=== PATIENT | female | born 1940 | race Caucasian/White ===

== ENCOUNTER 2017-12-13 01:43 | Inpatient (IN) | payer MEDICARE ==
[2017-12-13] VITALS (18 sets, daily range): BP systolic 89–147; BP diastolic 43–85
[~2017-12-13] VITALS: Ht 167.6 cm; Wt 71.8 kg
[~2017-12-13 01:43] MED LIST: THY60T PO
[2017-12-13 02:35] LABS: INR 0.9 INR; PROTHROMBIN TIME 9.7 SECONDS (9.0-12.0)
[2017-12-13] MEDS ORDERED: morphine 4 MG/ML inj SYRINge IV ONE (02:35)
[2017-12-13] MEDS ORDERED: normal saline 1000ML IV soln IVB ONE (02:35)
[2017-12-13] MEDS ORDERED: ondansetron/PF 4mg/2ml inj IV ONE (02:35)
[2017-12-13 02:38] LABS: CLARITY,URINE CLOUDY (Clear); GLUCOSE, URINE NEGATIVE (Neg); KETONES,URINE 15 mg/dl (Neg); LEUKOCYTE ESTERASE ,URINE MODERATE (Neg); NITRITES, URINE NEGATIVE (Neg); OCCULT BLOOD,URINE LARGE (Neg); PROTEIN,URINE 30 mg/dl (Neg)
[2017-12-13 02:41] LABS: ALANINE AMINOTRANSFERASE 308 U/L (12-78); ALBUMIN 3.9 G/DL (3.4-5.0); ALBUMIN/GLOBULIN RATIO 0.8 (1.1-1.5); ALKALINE PHOSPHATASE 395 IU/L (46-116); ANION GAP 11 (8-16); ASPARTATE AMINO TRANSFERASE 303 U/L (10-37); BILIRUBIN,TOTAL 1.7 MG/DL (0.1-1.0); BLOOD UREA NITROGEN 23 MG/DL (7-18); BUN/CREATININE RATIO 17.2 (6.6-38.0); CHLORIDE 99 MMOL/L (99-107); CREATININE 1.34 MG/DL (0.40-0.90); GLUCOSE 184 MG/DL (70-104); LIPASE 106 U/L (73-393); POTASSIUM 4.1 MMOL/L (3.5-5.1); SODIUM 139 MMOL/L (135-145); TOTAL PROTEIN 8.6 G/DL (6.4-8.2); eGFR 38 ML/MIN
[2017-12-13 02:44] LABS: UA COLLECTION TYPE NON-SPECIFIED
[2017-12-13 02:45] LABS: COLOR,URINE DARK YELLOW (Yellow)
[2017-12-13 03:05] LABS: BASOPHILS % (AUTO) 0.1 % (0-1); EOSINOPHILS # (AUTO) 0.1 X10'3 (0-0.9); EOSINOPHILS % (AUTO) 0.7 % (0-6); HEMATOCRIT 41.7 % (35.0-45.0); HEMOGLOBIN 13.5 g/dl (12.0-16.0); LYMPHOCYTES # (AUTO) 1.1 X10'3 (1.1-4.8); LYMPHOCYTES % (AUTO) 9.8 % (21-51); MEAN CORPUSCULAR HEMOGLOBIN 28.4 PG (27.0-31.0); MEAN CORPUSCULAR HGB CONC 32.3 % (33.0-36.5); MEAN PLATELET VOLUME 9.4 FL (7.4-10.4); MONOCYTES # (AUTO) 0.6 X10'3 (0-0.9); MONOCYTES % (AUTO) 5.4 % (2-12); NEUTROPHILS # (AUTO) 9.1 X10'3 (1.8-7.7); PLATELET COUNT 304 X10'3 (140-440); RED BLOOD COUNT 4.74 X10'6 (4.20-5.60); RED CELL DISTRIBUTION WIDTH 13.3 % (11.5-14.5); WHITE BLOOD COUNT 10.9 X10'3 (4.5-11.0)
[2017-12-13 03:15] LABS: WBC,URINE TNTC /HPF (0-4)
[2017-12-13 03:16] LABS: BACTERIA,URINE 1+ /HPF (Neg); MUCUS STRANDS FEW /LPF (Neg); RENAL CELLS, URINE FEW /HPF; SQUAMOUS EPITHELIAL CELL,UR FEW /LPF (FEW); TRANSITIONAL EPI CELLS,URINE FEW /HPF; WBC CLUMPS,URINE MODERATE /HPF (NEGATIVE)
[2017-12-13 03:17] LABS: HYALINE CASTS 0-3 /LPF (NEGATIVE)
[2017-12-13] MEDS ORDERED: piperacillin/tazo 3.375gm/50ml 50 ML IV STA (04:49)
[2017-12-13] MEDS ORDERED: magnesium hydroxide 30ml (MOM) UD suspension PO PRN (05:00)
[2017-12-13] MEDS ORDERED: diphenhydrAMINE 25mg capsule PO PRN (05:00)
[2017-12-13] MEDS ORDERED: diphenhydrAMINE 50 mg/ml inj IV PRN (05:00)
[2017-12-13] MEDS ORDERED: metoclopramide 5 mg/ml inj IV PRN (05:00)
[2017-12-13] MEDS ORDERED: HYDROmorphone inj. 0.5 MG/0.5 ML DISP.SYRIN IV PRN ×2 (05:00)
[2017-12-13] MEDS ORDERED: HYDROcodone/acetaminophen 5mg/325mg tablet PO PRN (05:00)
[2017-12-13] MEDS ORDERED: acetaminophen 650mg rectal suppository RC PRN (05:00)
[2017-12-13] MEDS ORDERED: acetaminophen 325mg tablet PO PRN (05:00)
[2017-12-13] MEDS ORDERED: HYDROcodone/acetaminophen 10/325mg tab PO PRN (05:00)
[2017-12-13] MEDS ORDERED: bisacodyl 10mg suppository rectal RC PRN (05:00)
[2017-12-13] MEDS ORDERED: morphine 4 MG/ML inj SYRINge IV PRN ×2 (05:00)
[2017-12-13] MEDS ORDERED: mag hydrox/Alum hydrox/simeth 30ml oral suspension PO PRN (05:00)
[2017-12-13] MEDS ORDERED: piperacillin/tazo 4.5gm/100ml 100 ML IV SCH (06:13)
[2017-12-13 06:30] LABS: PARTIAL THROMBOPLASTIN TIME 25 SECONDS (22-32)
[2017-12-13] MEDS: pantoprazole 40 MG vial IV SCH (06:35)
[2017-12-13] MEDS: normal saline 1000ml 1,000 ML IV SCH ×2 (06:35→17:09)
[2017-12-13] MEDS: docusate sod 100mg capsule PO SCH ×2 (06:41→20:00)
[2017-12-13 06:48] LABS: MAGNESIUM 2.1 MG/DL (1.5-2.4)
[2017-12-13] MEDS: thyroid, pork 30mg tablet PO SCH (08:00)
[2017-12-13] MEDS: CefTRIAXone/D5W-Rocephin 1gm 50 ML IV SCH (08:32)
[2017-12-13] MEDS: metroNIDAZOLE-Flagyl 500mg/NS 100 ML IV SCH ×2 (09:41→17:09)
[2017-12-13] MEDS ORDERED: normal saline 1000ml 1,000 ML IV SCH (12:04)
[2017-12-13] MEDS ORDERED: glucagon, human recombinant 1mg kit IV PRN (12:05)
[2017-12-13] MEDS ORDERED: MIDAZolam 5mg/5ml vial IV PRN (12:05)
[2017-12-13] MEDS ORDERED: fentaNYL/PF 50MCG/1 ML 2ML syringe IV PRN (12:05)
[2017-12-13] MEDS ORDERED: iohexol 300 MG/1 ML 50ml polymer IV ONE (12:05)
[2017-12-13] MEDS ORDERED: simethicone 40mg/0.6ml oral drops 30ml MC ONE (12:05)
[2017-12-13] MEDS ORDERED: LIDOcaine Viscous 15ml cup PO ONE (12:05)
[2017-12-13] MEDS ORDERED: meperidine/PF 100mg/ml syringe ONE (12:21)
[2017-12-13] MEDS ORDERED: fentaNYL/PF 50MCG/1 ML 2ML syringe ONE (12:22)
[2017-12-13] MEDS ORDERED: MIDAZolam 5mg/5ml vial ONE (12:22)
[2017-12-13] MEDS ORDERED: diphenhydrAMINE 50 mg/ml inj ONE (12:22)
[2017-12-13] MEDS ORDERED: levoFLOXACIN-Levaquin 500mg/D5 100 ML IV ONE (12:23)
[2017-12-13] MEDS ORDERED: LIDOcaine Viscous 15ml cup ONE (12:23)
[2017-12-13] MEDS ORDERED: glucagon, human recombinant 1mg kit ONE (12:23)
[2017-12-13] MEDS ORDERED: iohexol 300 MG/1 ML 50ml polymer ONE (12:23)
[2017-12-13] MEDS ORDERED: normal saline 500ml IV soln 500 ML IV ONE (19:55)
[2017-12-13] MEDS: lactobacillus rhamnosus 10,000 MMU CELLS/CAPSULE PO SCH (20:09)
[2017-12-13] MEDS: ondansetron/PF 4mg/2ml inj IV PRN (20:23)
[2017-12-13 20:25] LABS: BASOPHILS % (AUTO) 0.2 % (0-1); EOSINOPHILS # (AUTO) 0.1 X10'3 (0-0.9); EOSINOPHILS % (AUTO) 1.5 % (0-6); HEMATOCRIT 34.1 % (35.0-45.0); HEMOGLOBIN 11.4 g/dl (12.0-16.0); LYMPHOCYTES # (AUTO) 0.9 X10'3 (1.1-4.8); LYMPHOCYTES % (AUTO) 9.8 % (21-51); MEAN CORPUSCULAR HEMOGLOBIN 29.6 PG (27.0-31.0); MEAN CORPUSCULAR HGB CONC 33.4 % (33.0-36.5); MEAN CORPUSCULAR VOLUME 88.4 FL (78-98); MEAN PLATELET VOLUME 8.5 FL (7.4-10.4); MONOCYTES # (AUTO) 0.7 X10'3 (0-0.9); NEUTROPHILS # (AUTO) 7.9 X10'3 (1.8-7.7); NEUTROPHILS % (AUTO) 81.5 % (42-75); PLATELET COUNT 210 X10'3 (140-440); RED BLOOD COUNT 3.85 X10'6 (4.20-5.60); RED CELL DISTRIBUTION WIDTH 13.9 % (11.5-14.5); WHITE BLOOD COUNT 9.6 X10'3 (4.5-11.0)
[2017-12-13 20:48] LABS: C-REACTIVE PROTEIN 6.25 MG/DL (0.0-0.5); CREATINE KINASE 56 U/L (26-192); LIPASE 66 U/L (73-393); MAGNESIUM 2.2 MG/DL (1.5-2.4); TROPONIN I < 0.04 NG/ML (0.0-0.05)
[2017-12-13] MEDS ORDERED: temazepam 15mg capsule PO PRN (21:00)
[2017-12-14] VITALS: BP 100/54
[2017-12-14] MEDS: metroNIDAZOLE-Flagyl 500mg/NS 100 ML IV SCH ×3 (00:06→16:05)
[2017-12-14] MEDS: normal saline 1000ml 1,000 ML IV SCH ×3 (00:58→17:43)
[2017-12-14 04:00] VITALS: BP 95/52
[2017-12-14] MEDS: pantoprazole 40 MG vial IV SCH (05:01)
[2017-12-14 05:53] LABS: BASOPHILS % (AUTO) 0.3 % (0-1); EOSINOPHILS # (AUTO) 0.1 X10'3 (0-0.9); EOSINOPHILS % (AUTO) 1.9 % (0-6); HEMATOCRIT 31.6 % (35.0-45.0); HEMOGLOBIN 10.7 g/dl (12.0-16.0); LYMPHOCYTES # (AUTO) 1.3 X10'3 (1.1-4.8); LYMPHOCYTES % (AUTO) 19.2 % (21-51); MEAN CORPUSCULAR HEMOGLOBIN 29.9 PG (27.0-31.0); MEAN CORPUSCULAR HGB CONC 33.9 % (33.0-36.5); MEAN CORPUSCULAR VOLUME 88.4 FL (78-98); MEAN PLATELET VOLUME 9.4 FL (7.4-10.4); MONOCYTES # (AUTO) 0.5 X10'3 (0-0.9); MONOCYTES % (AUTO) 7.3 % (2-12); NEUTROPHILS # (AUTO) 4.6 X10'3 (1.8-7.7); NEUTROPHILS % (AUTO) 71.3 % (42-75); PLATELET COUNT 194 X10'3 (140-440); RED BLOOD COUNT 3.58 X10'6 (4.20-5.60); RED CELL DISTRIBUTION WIDTH 13.9 % (11.5-14.5); WHITE BLOOD COUNT 6.5 X10'3 (4.5-11.0)
[2017-12-14 06:10] LABS: ALANINE AMINOTRANSFERASE 361 U/L (12-78); ALBUMIN 2.5 G/DL (3.4-5.0); ALBUMIN/GLOBULIN RATIO 0.7 (1.1-1.5); ALKALINE PHOSPHATASE 280 IU/L (46-116); ANION GAP 10 (8-16); ASPARTATE AMINO TRANSFERASE 242 U/L (10-37); BILIRUBIN,TOTAL 1.4 MG/DL (0.1-1.0); BLOOD UREA NITROGEN 21 MG/DL (7-18); BUN/CREATININE RATIO 21.4 (6.6-38.0); CHLORIDE 108 MMOL/L (99-107); CREATININE 0.98 MG/DL (0.40-0.90); GLUCOSE 99 MG/DL (70-104); POTASSIUM 3.8 MMOL/L (3.5-5.1); SODIUM 141 MMOL/L (135-145); eGFR 55 ML/MIN
[2017-12-14 06:54] VITALS: BP 101/53
[2017-12-14] MEDS: lactobacillus rhamnosus 10,000 MMU CELLS/CAPSULE PO SCH ×2 (07:24→20:10)
[2017-12-14] MEDS: thyroid, pork 30mg tablet PO SCH (07:25)
[2017-12-14] MEDS: docusate sod 100mg capsule PO SCH ×2 (07:25→20:00)
[2017-12-14] MEDS: CefTRIAXone/D5W-Rocephin 1gm 50 ML IV SCH (07:27)
[2017-12-14 13:34] VITALS: BP 107/61
[2017-12-14] MEDS: ondansetron/PF 4mg/2ml inj IV PRN (17:43)
[2017-12-14 20:00] VITALS: BP 121/71
[2017-12-15] VITALS: BP 115/58
[2017-12-15] MEDS: ondansetron/PF 4mg/2ml inj IV PRN ×2 (01:00→07:43)
[2017-12-15] MEDS: normal saline 1000ml 1,000 ML IV SCH (02:59)
[2017-12-15] MEDS: pantoprazole 40 MG vial IV SCH (04:38)
[2017-12-15 07:00] VITALS: BP 126/48
[2017-12-15] MEDS: lactobacillus rhamnosus 10,000 MMU CELLS/CAPSULE PO SCH (07:30)
[2017-12-15] MEDS: docusate sod 100mg capsule PO SCH (07:31)
[2017-12-15] MEDS: thyroid, pork 30mg tablet PO SCH (07:37)
[2017-12-15] MEDS: CefTRIAXone/D5W-Rocephin 1gm 50 ML IV SCH (07:37)
[2017-12-15] MEDS: metroNIDAZOLE-Flagyl 500mg/NS 100 ML IV SCH ×2 (08:00)
[2017-12-15 08:32] LABS: BASOPHILS % (AUTO) 0.4 % (0-1); EOSINOPHILS # (AUTO) 0.4 X10'3 (0-0.9); HEMATOCRIT 35.3 % (35.0-45.0); HEMOGLOBIN 11.8 g/dl (12.0-16.0); LYMPHOCYTES % (AUTO) 27.7 % (21-51); MEAN CORPUSCULAR HEMOGLOBIN 29.8 PG (27.0-31.0); MEAN CORPUSCULAR HGB CONC 33.5 % (33.0-36.5); MEAN CORPUSCULAR VOLUME 88.9 FL (78-98); MONOCYTES # (AUTO) 0.6 X10'3 (0-0.9); MONOCYTES % (AUTO) 7.6 % (2-12); NEUTROPHILS # (AUTO) 4.4 X10'3 (1.8-7.7); NEUTROPHILS % (AUTO) 59.3 % (42-75); PLATELET COUNT 255 X10'3 (140-440); RED BLOOD COUNT 3.98 X10'6 (4.20-5.60); RED CELL DISTRIBUTION WIDTH 14.3 % (11.5-14.5); WHITE BLOOD COUNT 7.4 X10'3 (4.5-11.0)
[2017-12-15 08:47] LABS: ALANINE AMINOTRANSFERASE 254 U/L (12-78); ALBUMIN 2.7 G/DL (3.4-5.0); ALBUMIN/GLOBULIN RATIO 0.7 (1.1-1.5); ALKALINE PHOSPHATASE 251 IU/L (46-116); ANION GAP 8 (8-16); ASPARTATE AMINO TRANSFERASE 115 U/L (10-37); BILIRUBIN,TOTAL 0.5 MG/DL (0.1-1.0); BLOOD UREA NITROGEN 13 MG/DL (7-18); BUN/CREATININE RATIO 13.5 (6.6-38.0); CALCIUM 8.2 MG/DL (8.5-10.1); CHLORIDE 107 MMOL/L (99-107); CREATININE 0.96 MG/DL (0.40-0.90); GLUCOSE 120 MG/DL (70-104); POTASSIUM 3.6 MMOL/L (3.5-5.1); SODIUM 141 MMOL/L (135-145); TOTAL PROTEIN 6.4 G/DL (6.4-8.2); eGFR 56 ML/MIN
[2017-12-15 11:45] VITALS: BP 116/65
[2017-12-15] MEDS ORDERED: LEVO500T2 PO (14:54)
== END 2017-12-15 16:00 | disposition home or self-care (01) | DRG 444 ==
LOC: ER 01:43 → ED HOLD 04:58 → EDBEDREQ 15:23 → SUR 3N 16:20
PROVIDERS: ADMIT Family Medicine; ATTEND Internal Medicine
PROC: 0FC98ZZ Extirpation of Matter from Common Bile Duct, Via Natural or Artificial Opening Endoscopic (ICD-10-PCS; principal; 2017-12-13)
DX: K80.31 Calculus of bile duct with cholangitis, unspecified, with obstruction (principal); N17.0 Acute kidney failure with tubular necrosis; N39.0 Urinary tract infection, site not specified; K90.49 Malabsorption due to intolerance, not elsewhere classified; I10 Essential (primary) hypertension; E86.0 Dehydration; R74.0 Nonspecific elevation of levels of transaminase and lactic acid dehydrogenase [LDH]; R73.9 Hyperglycemia, unspecified; E03.9 Hypothyroidism, unspecified; K31.9 Disease of stomach and duodenum, unspecified; Z90.49 Acquired absence of other specified parts of digestive tract
CPT/HCPCS: 36415; 74176; 80053; 81001; 82550; 83605; 83690; 83735; 83880; 84484; 85025; 85610; 85651; 85730; 86140; 87040; 87070; 87077; 87088; 87186; 96374; 96375; 99285; A4620; C9113; G0500; J0696; J1200; J1610; J1956; J2175; J2250; J2270; J2405; J2543; J3010; J3490; J7030; Q9967